=== PATIENT | female | born 1955 | race Caucasian/White ===

== ENCOUNTER 2025-07-24 13:10 | Emergency (ER) | payer MEDICARE, MEDICAID, SELFPAY ==
--- OUTSIDE RECORDS SUMMARY | 2025-02-26 07:00 | XMS_ITS ---
Author Organization [facility] Address [address] [place] [address] Care Team Providers Care Photoflash Powder Mixer Name Role Phone Alina Evans Primary Care Provider [phone] EVANS, ALINA Unavailable Unavailable REASON FOR VISIT f/u Encounters Encounter Location Date Provider Diagnosis [facility] Office [address] [address] 02/26/2025 Alina Evans Plan Of Treatment No Information Progress Notes * Kathleen BUTT LDOB: (70 yo F)Acc No.[id number]:02/26/2025 Progress Notes Patient: Berenice samuels Kathleen Cade Provider: Farzana Evans UNIX ARCHITECT :1955 A ge:70 Y S ex:Female Date:02/26/2025 [facility] Subjective: * Chief Complaints: * F /u Billing Information: * Procedure Codes: Care Plan Details* * Electronic signature of Grey Evans APN on 07/24/2025 at 01:24 PM TRANSPLANT NURSE Sign off status: Pending * Provider: Farzana Evans UNIX ARCHITECT Date: 0 02/26/2025 Generated for Fredrick valencia/Talon/eTransmitting on: 01:24 PM TRANSPLANT NURSE
--- OUTSIDE RECORDS SUMMARY | 2025-03-04 07:00 | XMS_ITS ---
Author Organization [facility] Address [address] [place] [address] Care Team Providers Care Rehab Therapy Manager Name Role Phone Alina Evans Primary Care Provider ALINA EVANS Unavailable Unavailable REASON FOR VISIT 3 month f/u Encounters Encounter Location Date Provider Diagnosis [facility] Office [address] [facility] [address] [place] [address] 03/04/2025 Alina Evans Plan Of Treatment No Information Progress Notes * Kathleen BUTT LDOB: (70 yo F)Acc No.[id number]:03/04/2025 Progress Notes Patient: Berenice samuels Kathleen Cade Provider: Farzana Evans SHAREHOLDER :1955 A ge:70 Y S ex:Female Date:03/04/2025 [facility] Subjective: * Chief Complaints: * 3 month f/u Care Plan Details* * Electronic signature of Grey Evans APN on 07/24/2025 at 01:24 PM STONEWORKER Sign off status: Pending * Provider: Farzana Evans SHAREHOLDER Date: 0 03/04/2025 Generated for Fredrick valencia/Talon/eTransmitting on: 01:24 PM STONEWORKER
--- OUTSIDE RECORDS SUMMARY | 2025-06-13 07:20 | XMS_ITS ---
Author Organization [facility] Address [address] [place] [address] Care Team Providers Care Branch Examiner Name Role Phone Alina Evans Primary Care Provider [phone] ALINA EVANS Unavailable Unavailable REASON FOR VISIT 3 month f/u Encounters Encounter Location Date Provider Diagnosis [facility] Office [address] [facility] [address] [place] [address] 06/13/2025 Alina Evans Plan Of Treatment No Information Progress Notes * Kathleen BUTT LDOB: (70 yo F)Acc No.[id number]:06/13/2025 Progress Notes Patient: Berenice samuels Kathleen Cade Provider: Farzana Evans EELER :1955 A ge:70 Y S ex:Female Date:06/13/2025 Address[facility] Subjective: * Chief Complaints: * 3 month f/u Care Plan Details* * Electronic signature of Grey Evans APN on 07/24/2025 at 01:24 PM COMMERCIAL REAL ESTATE LENDER Sign off status: Pending * Provider: Farzana Evans EELER Date: 08/13/2024 Generated for Fredrick valencia/Talon/eTransmitting on: 01:24 PM COMMERCIAL REAL ESTATE LENDER
--- OUTSIDE RECORDS SUMMARY | 2025-06-28 05:35 | XMS_ITS ---
Author Organization [facility] Address [address] [place] [address] Care Team Providers Care Wildlife Ecology Professor Name Role Phone [facility] Primary Care Provider [place], [facility] Unavailable Unavailable Allergies Allergen (clinical drug ingredient) Drug/Non Drug Allergy documented on EMR Reaction Allergy Type Onset Date Status No Known Drug Allergy Unknown Drug Allergy Active REASON FOR VISIT [facility] Monthly Call Medications Medication SIG (Take, Route, Frequency, Duration) Notes Start Date End Date Status Vitamin B Complex - Tablet 1 tablet Orally daily Active traMADol HCl 50 mg Tablet TAKE 1 TABLET BY MOUTH EVERY 4 hours NEEDED FOR SEVERE pain FOR 30 days; Duration: 30 06/21/2025 Active Vitamin D (Ergocalciferol) 1.25 MG (11622 UT) Capsule TAKE ONE CAPSULE BY MOUTH EVERY WEEK; Duration: 28 Active Levothyroxine Sodium 75 mcg Tablet TAKE 1 TABLET BY MOUTH EVERY MORNING; Duration: 30 Active traZODone HCl 50 mg Tablet TAKE ONE TABL ET BY MOUTH At Bedtime NEEDED; Duration: 30 Active Benazepril HCl 20 mg Tablet TAKE ONE TABLET BY MOUTH TWICE DAILY OR as directed FOR blood pressure; Duration: 100 Active ARIPiprazole 2 mg Tablet 1 tab orally ev bridget other day in the evening; Duration: 90 days Active Aspirin 81 MG Tablet Chewable 1 tablet Orally Once a day; Duration: 30 day(s) 03/15/2022 Active Benazepril HCl 20 mg Tablet TAKE ONE TABLET BY MOUTH TWICE DAILY OR as directed FOR blood pressure; Duration: 100 Active Atorvastatin Calcium 10 mg Tablet TAKE ONE TABLET BY MOUTH EVERY EVENING; Duration: 90 Active Montelukast Sodium 10 MG Tablet 1 tablet Orally Once a day; Duration: 30 day(s) 07/12/2022 Not-Taking Metoprolol Tartrate 100 mg Tablet TAKE ONE TABLET BY MOUTH TWICE DAILY; Duration: 30 Active Cetirizine HCl 10 mg Tablet TAKE ONE TABLET BY MOUTH EVERY DAY; Duration: 30 Active Estradiol 1 mg Tablet TAKE ONE TABLET BY MOUTH DAILY; Duration: 30 Active Escitalopram Oxalate 20 mg Tablet TAKE 1 TABLET BY MOUTH EVERY DAY; Duration: 30 Active ALPRAZolam 0.5 mg Tablet TAKE 1/2 TO 1 T ABLET BY MOUTH THREE TIMES DAILY NEEDED FOR ANXIETY; Duration: 30 06/21/2025 Active Fluticasone Propionate 50 MCG/ACT Suspension 1 spray in each nostril Nasally Once a day; Duration: 30 day(s) 09/10/2022 Not-Taking Estradiol 0.1 MG/24HR Patch Twice Weekly APPLY ONE PATCH onto SKIN twice PER WEEK DIRECTED; Duration: 84 Not-Takin g Social History Tobacco Use: Social History Observation Description Date Details (start date - stop date) Former Smoker NA - NA Social History Tobacco Use: Social Info Question Answer Notes Tobacco Control (Standard) Tobacco use: Former smoker How long has it been since you last smoked? 5-10 years Section Notes: Depression screen completed 07/31/2024 Encounters Encounter Location Date Provider Diagnosis [facility] [place] 06/28/2025 Trinidad Evans Generalized anxi ety disorder F41.1 and Essential (primary) hypertension I10 Assessments Encounter Date Diagnosis (ICD Code) Assessment Notes Treatment Notes Treatment Clinical Notes Section Notes 06/28/2025 Generalized anxiety disorder (ICD-10 - F41.1) Learning About Anxiety Disorders material was published 06/28/2025 Essential (primary) hypertension (ICD-10 - I10) Plan Of Treatment Treatment Notes Assessment Notes Generalized anxiety disorder Learning Ab out Anxiety Disorders material was published Progress Notes * Kathleen BUTT LDOB: 5 (70 yo F)Acc No.[id number]:06/28/2025 Patient: Feng FLORESholli Cade :1955 A ge:70 Y S ex:Female Address:[address] [place] [id number] Subjective: * Chief Complaints: * C CM Monthly Call * Medical History: Problem:Depressive disorder (disorder) , Status :: Active Problem:Fibrocystic disease of breast (disorder) , Status :: Active Problem:Hypertensive disorder, systemic arterial (disorder) , Status :: Active Problem:Incontinence (finding) , Status :: Active Problem:Uterine prolapse (disorder) , Status :: Active Measles Mumps Chicken Pox * Surgical History: hysterectomy 2019 cataract removal 2017 * Hospitalization/Major Diagno stic Procedure: Major Depression 2019 * Family History: F ather: 93 yrs, dementia, hypertension, colon problem, stroke. M other: 45 yrs, breast cancer. M aternal Grand Father: cancer. P aternal Grand Father: heart attack. C hildren: alive. S pouse: alive. * Social History: T obacco Use: T obacco Control (Standard) T obacco use: F ormer smoker H ow long has it been since you last smoked??5-10 years D epression screen completed 07/31/2024. * Medications: T akingEscitalopram Oxalate 20 mg Tablet TAKE 1 TABLET BY MOUTH EVERY DAY Estradiol 1 mg Tablet TAKE ONE TABLET BY MOUTH DAILY Cetirizine HCl 10 mg Tablet TAKE ONE TABLET BY MOUTH EVERY DAY Metoprolol Tartrate 100 mg Tablet TAKE ONE TABLET BY MOUTH TWICE DAILY Atorvastatin Calcium 10 mg Tablet TAKE ONE TABLET BY MOUTH EVERY EVENING Benazepril HCl 20 mg Tablet TAKE ONE TABLET BY MOUTH TWICE DAILY OR as directed FOR blood pressure ARIPiprazole 2 mg Tablet 1 tab orally every other day in the evening Benazepril HCl 20 mg Tablet TAKE ONE TABLET BY MOUTH TWICE DAILY OR as directed FOR blood pressure Aspirin 81 MG Tablet Chewable 1 tablet Orally Once a day Vitamin B Complex - Tablet 1 tablet Orally daily Vitamin D (Ergocalciferol) 1.25 MG (88055 UT) Capsule TAKE ONE CAPSULE BY MOUTH EVERY WEEK traZODone HCl 50 mg Tablet TAKE ONE TABLET BY MOUTH At Bedtime NEEDED Levothyroxine Sodium 75 mcg Tablet TAKE 1 TABLET BY MOUTH EVERY MORNING traMADol HCl 50 mg Tablet TAKE 1 TABLET BY MOUTH EVERY 4 hours NEEDED FOR SEVERE pain FOR 30 days ALPRAZolam 0.5 mg Tablet TAKE 1/2 TO 1 TABLET BY MOUTH THREE TIMES DAILY NEEDED FOR ANXIETY Taking Escitalopram Oxalate 20 mg Tablet TAKE 1 TABLET BY MOUTH EVERY DAY Taking Estradiol 1 mg Tablet TAKE ONE TABLET BY MOUTH DAILY Taking Cetirizine HCl 10 mg Tablet TAKE ONE TABLET BY MOUTH EVERY DAY Taking Metoprolol Tartrate 100 mg Tablet TAKE ONE TABLET BY MOUTH TWICE DAILY Taking Atorvastatin Calcium 10 mg Tablet TAKE ONE TABLET BY MOUTH EVERY EVENING Taking Benazepril HCl 20 mg Tablet TAKE ONE TABLET BY MOUTH TWICE DAILY OR as directed FOR blood pressure Taking ARIPiprazole 2 mg Tablet 1 tab orally every other day in the evening Taking Benazepril HCl 20 mg Tablet TAKE ONE TABLET BY MOUTH TWICE DAILY OR as directed FOR blood pressure Taking Aspirin 81 MG Tablet Chewable 1 tablet Orally Once a day Taking Vitamin B Complex - Tablet 1 tablet Orally daily Taking Vitamin D (Ergocalciferol) 1.25 MG (37752 UT) Capsule TAKE ONE CAPSULE BY MOUTH EVERY WEEK Taking traZODone HCl 50 mg Tablet TAKE ONE TABLET BY MOUTH At Bedtime NEEDED Taking Levothyroxine Sodium 75 mcg Tablet TAKE 1 TABLET BY MOUTH EVERY MORNING Taking traMADol HCl 50 mg Tablet TAKE 1 TABLET BY MOUTH EVERY 4 hours NEEDED FOR SEVERE pain FOR 30 days Taking ALPRAZolam 0.5 mg Tablet TAKE 1/2 TO 1 TABLET BY MOUTH THREE TIMES DAILY NEEDED FOR ANXIETY Not-TakingEstradiol 0.1 MG/24HR Patch Twice Weekly APPLY ONE PATCH onto SKIN twice PER WEEK DIRECTED Fluticasone Propionate 50 MCG/ACT Suspension 1 spray in each nostril Nasally Once a day Montelukast Sodium 10 MG Tablet 1 tablet Orally Once a day Not-Taking Estradiol 0.1 MG/24HR Patch Twice Weekly APPLY ONE PATCH onto SKIN twice PER WEEK DIRECTED Not-Taking Fluticasone Propionate 50 MCG/ACT Suspension 1 spray in each nostril Nasally Once a day Not-Taking Montelukast Sodium 10 MG Tablet 1 tablet Orally Once a day * Allergies: N o Known Drug Allergy Assessment: * Assessment: 1. G eneralized anxiety disorder - F41.1 (Primary) 2 . E ssential (primary) hypertension - I10 Plan: * Treatment: * * Date:
[2025-07-24 13:03] VITALS: BP 152/74; PULSE 66; RESP 18; TEMP 36.8; O2SAT 98; BMI 18.2
--- NOTE | 2025-07-24 13:06 | XR_ITS ---
WS: [id number] Right wrist, 3 views, 07/24/2025 Clinical Data: Trauma, obvious deformity Comparison: None. Findings: There are comminuted impacted fractures of the right distal radius and ulna. Dorsal displacement occurred. There is soft tissue swelling about the wrist. The carpal bones are intact. The mineralization of the wrist and hand is noted. XR/XR wrist RT min 3V* [id number] Impression: Fractures of distal right radius and ulna.
--- NOTE | 2025-07-24 13:06 | CTR_ITS ---
PROCEDURE INFORMATION: Exam: CT Cervical Spine Without Contrast Exam date and time: 07/24/2025 1:25 PM Age: 70 years old Clinical indication: Injury or trauma; Blunt trauma; Injury date: 3 weeks ago; Injury details: PT presents to ED via [facility] for fall 3 wks ago, R wrist pain. Has had persisting R wrist pain since them. Also struck head, - loc. No anticoagulation. EMS reports HX dementia. Lives at home with . TECHNIQUE: Imaging protocol: Computed tomography of the cervical spine without contrast. Radiation optimization: All CT scans at this facility use at least one of these dose optimization techniques: automated exposure control; mA and/or kV adjustment per patient size (includes targeted exams where dose is matched to clinical indication); or iterative reconstruction. COMPARISON: CT head wo con* [id number] 07/24/2025 1:25 PM RADIATION DOSE METRICS: Total DLP (mGy-cm): 158.1 FINDINGS: Bones: No acute fracture. Normal alignment. No significant disc bulge or herniation. No severe spinal canal stenosis. No significant neural foraminal narrowing. Lungs: Lung apices are normal. Soft tissues: Unremarkable. CT/CT cervical spin wo con* [id number] IMPRESSION: No acute cervical spine fracture.
--- NOTE | 2025-07-24 13:07 | CTR_ITS ---
PROCEDURE INFORMATION: Exam: CT Head Without Contrast Exam date and time: 07/24/2025 1:25 PM Age: 70 years old Clinical indication: Injury or trauma; Blunt trauma (contusions or hematomas); Injury details: PT presents to ED via [facility] for fall 3 wks ago, R wrist pain. Has had persisting R wrist pain since them. Also struck head, - loc. No anticoagulation. EMS reports HX dementia. Lives at home with . ; Additional info: Altered mental status fall TECHNIQUE: Imaging protocol: Computed tomography of the head without contrast. Radiation optimization: All CT scans at this facility use at least one of these dose optimization techniques: automated exposure control; mA and/or kV adjustment per patient size (includes targeted exams where dose is matched to clinical indication); or iterative reconstruction. COMPARISON: CT cervical spin wo con* [id number] 07/24/2025 1:25 PM RADIATION DOSE METRICS: Total DLP (mGy-cm): 158.1 FINDINGS: Brain: Are No acute intra-axial hemorrhage. No masses. Normal no-white matter differentiation. No midline shift or mass effect. Mild patchy hypodensity in hemispheric white matter bilaterally most likely due to chronic microangiopathy. There is mild diffuse cerebral atrophy present, consistent with this patient's age. Cerebral ventricles: No ventriculomegaly. Paranasal sinuses: Visualized sinuses are unremarkable. No fluid levels. Mastoid air cells: Visualized mastoid air cells are well aerated. Bones: Unremarkable. No acute fracture. Soft tissues: Unremarkable. CT/CT head wo con* [id number] IMPRESSION: No acute intracranial abnormality.
--- NOTE | 2025-07-24 13:10 | W.ED.GENADLT ---
HPI - General Adult General: Chief complaint: Fall Stated complaint: fall x3 weeks ago, wrist pain History of Present Illness: 7-year-old female presents emergency room report of a fall 3 weeks ago she has obvious deformity to her right wrist she also states she hit her head and that her neck hurts. She has a history of dementia and lives at home her is her main support person. She denies loss of consciousness but I am uncertain that she actually understands the question. She denies chest pain or abdominal pain or recent illness. Associated symptoms: Deny chest pain, dyspnea or rash Related Data Home Medications ?Medication ?Instructions ?Recorded ?Confirmed alprazolam 0.5 mg tablet 0.25 - 0.5 mg PO TID PRN Anxiety 07/24/25 07/24/25 aripiprazole 2 mg tablet See Rx Instructions .Route .COMPLEX 07/24/25 07/24/25 atorvastatin 10 mg tablet 10 mg PO QPM 07/24/25 07/24/25 benazepril 20 mg tablet 20 mg PO BID 07/24/25 07/24/25 cetirizine 10 mg tablet 10 mg PO DAILY 07/24/25 07/24/25 escitalopram oxalate 20 mg tablet 20 mg PO DAILY 07/24/25 07/24/25 estradiol 1 mg tablet 1 mg PO DAILY 07/24/25 07/24/25 levothyroxine 75 mcg tablet 75 mcg PO QAM 07/24/25 07/24/25 metoprolol tartrate 100 mg tablet 100 mg PO BID 07/24/25 07/24/25 tramadol 50 mg tablet 50 mg PO Q4H PRN Severe Pain 07/24/25 07/24/25 (Scale Score 7-10) trazodone 50 mg tablet 50 mg PO BEDTIME PRN Sleep 07/24/25 07/24/25 Previous Rx's ?Medication ?Instructions ?Recorded magnesium oxide 400 mg PO BID #20 tabs 07/24/25 potassium chloride 20 mEq 20 meq PO DAILY #10 tabs 07/24/25 tablet,extended release (K-Tab) Allergies Allergy/AdvReac Type Severity Reaction Status Date / Time No Known Allergies Allergy Verified 07/24/25 13:09 Review of Systems Const: Denies: fever(s) or chills Card: Denies: chest pain Resp: Denies: dyspnea GI: Denies: abdominal pain : Denies: dysuria, urinary frequency or urinary urgency Musc: Denies: neck pain or back pain Skin/Breast: Denies: rash Physical Exam Const: COMMON NORMALS: no acute distress GENERAL APPEARANCE: cooperative and comfortable ORIENTATION/CONSCIOUSNESS: Yes awake, Yes oriented to person, Yes oriented to place and Yes oriented to time HENMT: COMMON NORMALS: normocephalic, atraumatic and hearing grossly normal bilaterally HEAD & SCALP: normocephalic and atraumatic Resp: COMMON NORMALS: normal respiratory effort, No retractions, No use of accessory muscles and clear to auscultation bilaterally AUSCULTATION: clear to auscultation bilaterally Cardio: COMMON NORMALS: regular rate, regular rhythm and No murmurs present (Cardio) RATE: regular rate RHYTHM: regular rhythm GI: COMMON NORMALS: Soft to palpation and No hepatosplenomegaly present AUSCULTATION: Yes normoactive bowel sounds PALPATION: Yes Soft to palpation, No Tenderness to palpation present (GI), No Guarding due to palpation present (GI) and Yes No hepatosplenomegaly present Extremity: COMMON NORMALS: normal to inspection, capillary refill normal, no clubbing, cyanosis or edema, no calf tenderness and no pedal edema Neuro: SENSORIUM/ORIENTATION: Yes oriented to person, Yes oriented to place and Yes oriented to time Skin: COMMON NORMALS: no rashes or lesions noted GENERAL SKIN EXAM: no rashes or lesions noted Course Vital Signs: Vital signs: Vital Signs Temperature 98.2 F 07/24/25 13:03 Pulse Rate 63 07/24/25 14:45 Respiratory Rate 16 07/24/25 14:45 Blood Pressure 168/52 07/24/25 14:45 Pulse Oximetry 98 07/24/25 14:45 Oxygen Delivery Me thod Room Air 07/24/25 13:14 MDM - General Adult Medical Decision Making Labs and imaging reviewed. Patient has a and is compacted has significant loss of volar tilt is already some healing in place. C-spine and head CT were unremarkable. Incidental finding of hypokalemia she was given oral potassium supplement. Magnesium was 1.3. Discussed findings with the patient discharged home with sugar-tong splint and a sling will refer her to orthopedics additionally patient discharged home with oral potassium supplement and magnesium and advised follow-up with her primary care doctor for repeat potassium testing within the next week. Medical Records I reviewed the patient's medical records. Lab Data I reviewed the patient's lab results. 07/24/25 13:21 07/24/25 13:21 Radiology Impressions Cervical Spine CT 07/24/25 13:06 IMPRESSION: No acute cervical spine fracture. Wrist X-Ray 07/24/25 13:06 Impression: Fractures of distal right radius and ulna. Head CT 07/24/25 13:07 IMPRESSION: No acute intracranial abnormality. Laboratory Results WBC 12.18 10^3/uL (3.29-11.43) H 07/24/25 13:21 RBC 4.24 10^6/uL (3.85-5.65) 07/24/25 13:21 Hgb 12.00 g/dL (11.27-16.99) 07/24/25 13:21 Hct 36.2 % (36-47) 07/24/25 13:21 MCV 85.4 fl (85-98) 07/24/25 13:21 MCH 28.3 pg (27-33) 07/24/25 13:21 MCHC 33.1 g/dL (30-55) 07/24/25 13:21 RDW 13.9 % (12.1-15.1) 07/24/25 13:21 Plt Count 176 10^3/cmm (157-399) 07/24/25 13:21 MPV 11.0 fL (7.4-10.4) H 07/24/25 13:21 Neut % (Auto) 86.7 % 07/24/25 13:21 Lymph % (Auto) 8.0 % 07/24/25 13:21 Blaine % (Auto) 4.4 % 07/24/25 13:21 Eos % (Auto) 0.0 % 07/24/25 13:21 Baso % (Auto) 0.2 % 07/24/25 13:21 Neut # (Auto) 10.55 10^3/uL (1.8-7.7) H 07/24/25 13:21 Lymph # (Auto) 1.0 10^3/uL (0.8-4.8) 07/24/25 13:21 Blaine # (Auto) 0.5 10^3/uL (0.2-0.9) 07/24/25 13:21 Eos # (Auto) 0.0 10^3/uL (0.0-0.8) 07/24/25 13:21 Baso # (Auto) 0.0 10^3/uL (0.0-0.1) 07/24/25 13:21 Nucleated RBC % (auto) 0 % 07/24/25 13:21 Nucleated RBCs # 0.0 /100WBC 07/24/25 13:21 Sodium 135 mmol/L (136-145) L 07/24/25 13:21 Potassium 2.8 mmol/L (3.5-5.1) L* 07/24/25 13:21 Chloride 96 mmol/L (98-107) L 07/24/25 13:21 Carbon Dioxide 25 mmol/L (22-29) 07/24/25 13:21 Anion Gap 16.8 (5-19) 07/24/25 13:21 BUN 8 mg/dL (8-23) 07/24/25 13:21 Creatinine 0.8 mg/dL (0.5-0.9) 07/24/25 13:21 GFR Calculation 70.9 mL/min (90-130) L 07/24/25 13:21 Glucose 130 mg/dL (65-115) H 07/24/25 13:21 Calculated Osmolality 280 mOsm/kg (285-295) L 07/24/25 13:21 Calcium 9.0 mg/dL (8.5-10.5) 07/24/25 13:21 Magnesium 1.3 mg/dL (1.7-2.3) L 07/24/25 13:21 Total Bilirubin 1.2 mg/dL (0.15-1.2) 07/24/25 13:21 AST 37 U/L (0-32) H 07/24/25 13:21 ALT 11 U/L (0-33) 07/24/25 13:21 Alkaline Phosphatase 96 U/L (35-105) 07/24/25 13:21 Total Protein 6.0 g/dL (6.6-8.7) L 07/24/25 13:21 Albumin 3.5 g/dL (3.5-5.2) 07/24/25 13:21 Globulin 2.5 g/dL (1.3-4.6) 07/24/25 13:21 All radiology interpretation(s) finalized by discharge ED provider radiology interpretation(s): Imaging reviewed by myself: X-ray of wrist reviewed by myself impacted distal radial ulnar fracture with loss of volar tilt. Changes of remodeling present. CT C-spine reviewed no significant malalignment. No evidence of fracture CT head no acute intracranial hemorrhage Discharge Plan Discharge Patient Disposition: Home Clinical Impression: Fracture of right wrist, Hypokalemia Condition: Stable Prescriptions: New potassium chloride [K-Tab] 20 mEq tablet extended release 20 meq PO DAILY Qty: 10 0RF magnesium oxide 400 mg magnesium tablet 400 mg PO BID Qty: 20 0RF No Action trazodone 50 mg tablet 50 mg PO BEDTIME PRN (Reason: Sleep) cetirizine 10 mg tablet 10 mg PO DAILY atorvastatin 10 mg tablet 10 mg PO QPM metoprolol tartrate 100 mg tablet 100 mg PO BID tramadol 50 mg tablet 50 mg PO Q4H PRN (Reason: Severe Pain (Scale Score 7-10)) levothyroxine 75 mcg tablet 75 mcg PO QAM alprazolam 0.5 mg tablet 0.25 - 0.5 mg PO TID PRN (Reason: Anxiety) estradiol 1 mg tablet 1 mg PO DAILY benazepril 20 mg tablet 20 mg PO BID escitalopram oxalate 20 mg tablet 20 mg PO DAILY aripiprazole 2 mg tablet See Rx Instructions .ROUTE .COMPLEX Rx Instructions: Take 1 tablet by mouth every other day in the evening. Discharge Orders: Discharge ED (Routine); Ordered 07/24/25 Ordered By: Cruzito Alas Referrals: Vincenzo Blake MD [Primary Care Provider, Internal Medicine] Discharge Diet: Usual diet Discharge Activity: Limit activity as instructed Patient Instructions: Opioid Safety, Pain Management, Patient Portal & Eric Instructions Activity Restrictions/Additional Instructions: Thank you for choosing [facility] for your healthcare needs today. It is very important that you follow up as instructed or that you return to the Emergency Department should you have concerns or if your condition changes or worsens in any way. Emergency department visits are focused on emergent conditions, in some cases you may require further evaluation on an outpatient basis. You were seen in the emergency room 3 weeks after a fall. You have a fracture of your right wrist. Case management make arrangements for you to follow-up with orthopedics. Your potassium was also low you were given a potassium supplement emergency room and a prescription for potassium tablet she should have this rechecked with your primary care doctor within the next week. (Please note that included in your discharge packet is information concerning opioid safety and pain management. This information is given to all patients were discharged from the ER regardless of their discharge diagnosis or the medicines they usually take or are prescribed.) Print Language: Kiswahili Coding Level of Care Code ED Biological Sciences Professor for Sheba Muhammad
[2025-07-24 13:14] VITALS: BP 152/74; PULSE 65; RESP 18; O2SAT 99
--- OUTSIDE RECORDS SUMMARY | 2025-07-24 13:24 | XMS_ITS | Patient Health Record ---
Author Organization [facility] Address [address] [address] Care Team Providers Care Healthcare Interpreter Name Role Phone [facility] Primary Care Provider DOROTHY, [facility] Unavailable Unavailable Allergies Allergen (clinical drug ingredient) Drug/Non Drug Allergy documented on EMR Reaction Allergy Type Onset Date Status No Known Drug Allergy Unknown Drug Allergy Active Results Component Value Reference Range Flag Notes Lipid Panel Reflex DLDL 8001 3, 40290 Reviewed date:08/02/2024 08:47:03 PM Interpretation: Performing Lab: Notes/Report: Diagnosis Description: Hyperlipidemia, unspecified Trig 124 NA Classification Guidelines:Triglycerides 5-9 yr 30-101 15-19 yr 39-132 Very high >=500 Children: Male Borderline High 150-199 5-9 yr 32-105 Children: Female 10-14 yr 37-131 Adults: >20yrs Desirable <150 High 200-499 0-4 yr 34-112 10-14 yr 32-125 0-4 yr 22-99 15-19 yr 37-148 Chol 130 <=200 MG/DL HDL 36 39-96 MG/DL LOW >=20y 40-59 15-19y 35-74 5-9y 36-73 Reference Ranges:HDL 10-14y 37-70 Female: >=20y 40-59 10-14y 37-74 5-9y 38-75 Male: 15-19y 30-63 CH/HDL 3.6 0.0-4.9 RATIO LDL 70 0-130 MG/DL LDL result is inaccurate , if Trig is >400 mg/dl. See DLDL result. Thyroid Stimulating Hormone (TSH) 27222 Reviewed date:08/02/2024 08:46:53 PM Interpretation: Performing Lab: Notes/Report: Diagnosis Description: Hypothyroidism, unspecified TSH 3.152 .358-3.740 MlU/ML Schedule Confirmation Reviewed date:10/25/2024 12:32:49 PM Interpretation: Performing Lab: Notes/Report: MMU Screen Joni Sunday w/CAD Schedule Confirmation (Not y et reviewed by provider) Interpretation: Performing Lab: Notes/Report: MMU Screen Joni Sunday w/CAD CBC w\ Auto Diff 08580 Reviewed date:08/02/2024 08:46:44 PM Interpretation: Performing Lab: Notes/Report: Diagnosis Description: Essential (primary) hypertension WBC 5.6 4.5-11.0 X10'3 RBC 4.38 4.00-5.20 X10'6 Hgb 12.0 12.0-16.0 G/DL Hct 38.2 36.0-46.0 % MCV 87.2 80.0-100.0 FL MCH 27.4 27.0-31.0 PG MCHC 31.4 31.0-37.0 G/DL Platelet 202 150-400 X10'3 RDW-SD 45.0 35.0-49.0 FL RDW-CV 14.1 12.2-15.6 % MPV 10.6 9.2-12.0 FL Neutro Auto% 65.9 40.0-70.0 % Lymph Auto% 27.9 22.0-44.0 % [place] Auto% 4.9 3.0-7.0 % Eos Auto% .7 2.0-4.0 % LOW Baso Auto% 0.4 0.0-1.0 % Imm Gran% .2 .0-.4 % Neutro Abs 3.67 .80-7.70 Absolute Neutrophil Count 3670 NA Lymph Abs 1.55 .10-4.10 [place] Abs .27 .20-1.00 Eos Abs .04 .00-.40 Baso Abs .02 .00-.20 Imm Gran Abs .01 .00-.10 NRBC# .00 .00-.20 X10'3 NRBC% .00 .00-.20 /100 int act WBC's Comprehensive Metabolic Pane l (CMP) 52682 Reviewed date:08/02/2024 08:46:08 PM Interpretation: Performing Lab: Notes/Report: Diagnosis Description: Essential (primary) hypertension Glucose Serum 70 71-110 MG/DL LOW Testing p erformed at [facility], [address] [place] [address] [place] [address]. CLIA ID#: [id number] BUN 14 7-21 MG/DL Creat 1.08 .51-1.17 MG/DL N-kvngaf-t-benzoquinone imine (NAPQI) is a metabolite of acetaminophen, NAPQI concentrations of apparoximately 10 mg/L correlation to toxic levels of acetaminophen demonstrates a greater than or equil to 10% change in results. NAPQI concentrations greater than this may lead to falsely depressed results for patient samples. Use of this assay is not recommended for patients undergoing treatment with phenindione, due to the potential for falsely depressed results. GFR 55.4 NA Calculation pe rformed from GFR calculator provided by the [employer]. Glomerular Filtration rate(GRF) is the best overall index of kidney function. Normal GFR varies according to age,sex, body size, and declines with age. The [employer] recommends using the CKD-EPI Creatinine Equation(2020) to estimate GFR. BUN/Creat Ratio 13.0 12.0-20.0 % Total Protein 6.0 5.8-8.0 G/DL Albumin 4.0 3.2-4.8 G/DL Globulin 2.0 2.3-3.5 G/DL LOW Alb/Glob 2.0 0.8-2.2 Calcium 9.3 8.7-10.4 MG/DL Sodium 142 136-145 MMOL/L Potassium 3.6 3.5-5.1 MMOL/L Chloride 106 98-107 MMOL/L CO2 30.4 20.0-31.0 MMOL/L Anion Gap 9 5-15 Alk Phos 84 46-116 Bili Total .3 .3-1.2 MG/DL Use of this assay is not recommended for patients undergoing treatment with eltrombopag due to the potential for falsely elevated results. AST/SGOT 12 15-37 UNIT/L LOW ALT/SGPT <7 12-78 UNIT/L LOW Schedule Confirmation Reviewed date:07/16/2025 12:57:30 PM Interpretation: Performing Lab: Notes/Report: MMU Screen Joni Sunday w/CAD Schedule Confirmation Reviewed date:10/25/2024 12:32:58 PM Interpretation: Performing Lab: Notes/Report: MMU Screen Joni Sunday w/CAD Cologuard Reviewed date:11/12/2024 10:34:35 AM Interpretation:Negative Performing Lab: Notes/Report: Negative Cologuard Reviewed date:11/12/2024 10:34:35 AM Interpretation:Negative Performing Lab: Notes/Report: Negative Schedule Confirmation Reviewed date:01/01/2025 01:00:35 PM Interpretation: Performing Lab: Notes/Report: MMU Screen Joni Sunday w/CAD Reason For Referral No Information Medications Medication SIG (Take, Route, Frequency, Duration) Notes Start Date End Date Status Benazepril HCl 20 mg Tablet TAKE ONE TABLET BY MOUTH TWICE DAILY OR as directed FOR blood pressure; Duration: 100 Active ARIPiprazole 2 mg Tablet 1 tab orally ev bridget other day in the evening; Duration: 90 days Active Montelukast Sodium 10 MG Tablet 1 tablet Orally Once a day; Duration: 30 day(s) 07/12/2022 Not-Taking Vitamin B Complex - Tablet 1 tablet Orally daily Active traMADol HCl 50 mg Tablet TAKE 1 TABLET BY MOUTH EVERY 4 hours NEEDED FOR SEVERE pain FOR 30 days; Duration: 30 07/11/2025 Active Aspirin 81 MG Tablet Chewable 1 tablet Orally Once a day; Duration: 30 day(s) 03/15/2022 Active ALPRAZolam 0.5 mg Tablet TAKE 1/2 TO 1 T ABLET BY MOUTH THREE TIMES DAILY NEEDED FOR ANXIETY; Duration: 30 06/21/2025 Active Cetirizine HCl 10 mg Tablet TAKE ONE TABLET BY MOUTH EVERY DAY; Duration: 30 Active Benazepril HCl 20 mg Tablet TAKE ONE TABLET BY MOUTH TWICE DAILY OR as directed FOR blood pressure; Duration: 100 Active Fluticasone Propionate 50 MCG/ACT Suspension 1 spray in each nostril Nasally Once a day; Duration: 30 day(s) 09/10/2022 Not-Taking Estradiol 0.1 MG/24HR Patch Twice Weekly APPLY ONE PATCH onto SKIN twice PER WEEK DIRECTED; Duration: 84 Not-Takin g Atorvastatin Calcium 10 mg Tablet TAKE ONE TABLET BY MOUTH EVERY EVENING; Duration: 90 Active Vitamin D (Ergocalciferol) 1.25 MG (56414 UT) Capsule TAKE ONE CAPSULE BY MOUTH EVERY WEEK; Duration: 28 Active Metoprolol Tartrate 100 mg Tablet TAKE ONE TABLET BY MOUTH TWICE DAILY; Duration: 30 Active Estradiol 1 mg Tablet TAKE ONE TABLET BY MOUTH DAILY; Duration: 30 Active Levothyroxine Sodium 75 mcg Tablet TAKE 1 TABLET BY MOUTH EVERY MORNING; Duration: 30 Active Escitalopram Oxalate 20 mg Tablet TAKE 1 TABLET BY MOUTH EVERY DAY; Duration: 30 Active traZODone HCl 50 mg Tablet TAKE ONE TABL ET BY MOUTH At Bedtime NEEDED; Duration: 30 Active Immunizations Vaccine Route Administration Date Status Comme nts COVID-19 Vaccine (Moderna) Dose #1 Unknown 10/05/2020 Administered COVID-19 Vaccine (Moderna) Dose #2 Unknown 11/04/2020 Administered Flucelvax Quadrivalent Pres Free IM Intramuscular 07/05/2022 Administered [facility]: 22992-801-85 Patient tolerated well, advised to wait 20 min at clinic Flucelvax Trivalent, Syringe 0.5 mL, PF Unknown 05/29/2024 Refused Flucelvax Trivalent, Syringe 0.5 mL, PF Unknown 06/21/2025 Refused Social History Tobacco Use: Social History Observation Description Date Details (start date - stop date) Former Smoker NA - NA Social History Depression Screening Social Info Question Answer Notes depression screening findings Findings Positive (9+ without suicidality) PHQ-9 Little interest or pleasure in doing things Nearly every day Feeling down, depressed, or hopeless Nearly ever y day Trouble falling or staying asleep, or sleeping t oo much Not at all Feeling tired or having little energy Not at all Poor appetite or overeating Several days Feeling bad about yourself, or that you are a failure, or have let yourself or your family down Nearly every day Trouble concentrating on thi ngs, such as reading the newspaper or watching television Not at all Moving or speaking so slowly that other people could have noticed. Or the opposite ? being so fidgety or restless that you have been moving around a lot more than usual Several days Thoughts that you would be b agustin off , or of hurting yourself in some way Not at all Total Score 11 Interpretation Moderate Depression Drugs/Alcohol: Social Info Question Answer Notes Alcohol Screen (Audit-C) Did you have a drink containing alcohol in the past year? No Points 0 Interpretation Negative Drugs Have you used drugs other than those for medical reasons in the past 12 months? No Caffeine Intake: more than 4 cups per day Comprehensive Health Assessm ent Social Info Question Answer Notes *Social Determinants of Health Has lack of transportation kept you from medical appointments, meetings, work or from getting things needed for daily living? No Recently, have you worried t hat your food would run out before you got money to buy more? No Do you feel physically and emotionally safe wher e you currently live? Yes Are you worried about losing your housing? No Tobacco Use: Social Info Question Answer Notes Tobacco Control (Standard) Tobacco use: Former smoker How long has it been since you last smoked? 5-10 years Section Notes: Depression screen completed 03/08/2023 score 5 Depression screen completed 12/06/2023 score 2 Depression screen completed 07/31/2024 12/03/2021 12/03/2021 12/03/2021 Depression screen completed 03/08/2023 score 5 Depression screen completed 03/08/2023 score 5 Depression screen completed 12/06/2023 score 2 Depression screen completed 12/06/2023 score 2 Depression screen completed 12/06/2023 score 2 Depression screen completed 07/31/2024 Depression screen completed 07/31/2024 Depression screen completed 07/31/2024 Depression screen completed 07/31/2024 12/03/2021 12/03/2021 12/03/2021 12/03/2021 12/03/2021 12/03/2021 Depression screen completed 03/08/2023 score 5 Depression screen completed 03/08/2023 score 5 Depression screen completed 03/08/2023 score 5 Depression screen completed 03/08/2023 score 5 Depression screen completed 03/08/2023 score 5 Depression screen completed 03/08/2023 score 5 Depression screen completed 12/06/2023 score 2 Depression screen completed 12/06/2023 score 2 Depression screen completed 12/06/2023 score 2 Depression screen completed 12/06/2023 score 2 Depression screen completed 12/06/2023 score 2 Depression screen completed 12/06/2023 score 2 Depression screen completed 12/06/2023 score 2 Depression screen completed 12/06/2023 score 2 Depression screen completed 12/06/2023 score 2 Depression screen completed 07/31/2024 Depression screen completed 07/31/2024 Depression screen completed 07/31/2024 Depression screen completed 07/31/2024 Depression screen completed 07/31/2024 Depression screen completed 07/31/2024 Depression screen completed 07/31/2024 Depression screen completed 07/31/2024 Depression screen completed 07/31/2024 Depression screen completed 07/31/2024 Problems Problem Type SNOMED Code ICD Code Onset Dates Problem Status W/U Status Risk Notes Problem Hysterectomy (307787374) Absence of uterus (Z90.710) 08/30/19 25 Active confirmed Problem Staphylococcal infectious disease (55717527) Unspecified staphylococcus as the cause of diseases classified elsewhere (B95.8) Active confirmed Problem Vitamin D deficiency (58340957) Vitamin D deficiency, unspecified (E55.9) Active confirmed Problem Mixed hyperlipidemia (945896530) Mixed hyperlipidemia (E78.2) Active confirmed Problem Schizophrenia (63700821) Schizophrenia, unspecified (F20.9) Active confirmed Problem Generalized anxiety disorder (04890129) Generalized anxiety disorder (F41.1) Active confirmed Problem Primary insomnia (8029239) Primary insomnia (F51.01) Active confirmed Problem Essential hypertension (23309521) Essential (primary) hypertension (I10) Active confirmed Problem Localized infection of skin AND/OR subcutaneous tissue (496139666) Local infection of the skin and subcutaneous tissue, unspecified (L08.9) Active confirmed Problem Other allergy status, other than to drugs and biological substances (Z91.09) Active confirmed Problem Screening for malignant neoplasm of breast (141814153) Breast cancer screening by mammogram (Z12.31) Active confirmed Problem Essential hypertension (71358694) Essential hypertension (I10) Active confirmed Problem Anxiety (84799344) Anxiety (F41.9) Active confi rmed Problem Osteoarthritis (660148574) Osteoarthritis, unspecified osteoarthritis type, unspecified site (M19.90) Active confirmed Problem Former smoker (0116575) Former smoker (Z87.891) Active confirmed Problem Exacerbation of moderate persistent asthma (disorder) (211867657) Moderate persistent asthmatic bronchitis with acute exacerbation (J45.41) Active confirmed Problem Sciatica (45842526) Right sided sciatica (M54.31) Active confirmed Problem Hypothyroidism (48823342) Hypothyroidism (acquired) (E03.9) Active confirmed Problem Peripheral vascular disease (039250591) PVD (peripheral vascular disease) (I73.9) Active confirmed Problem Exposure to the flu (Z20.828) Active confirmed Problem Hyperlipidaemia (98138322) Hyperlipemia (E78.5) Active confirmed Problem Depression (722027421) Depression (F32.9) Active confirmed Problem Schizophrenia in remission (7585660) Schizophrenia in remission (F20.9) Active confirmed Problem Depression (447185849) Other depression (F32.89) Active confirmed Problem Peripheral vascular disease (760739617) PAD (peripheral artery disease) (I73.9) Active confirmed Problem Thoracogenic scoliosis (61394929) Thoracogenic scoliosis of thoracic region (M41.34) Active confirmed Problem Claudication (96042456) Claudication (I73.9) Active confirmed Problem Peripheral venous insufficiency (59016208) Venous insufficiency (I87.2) Active confirmed Problem Environmental allergy (772507715) Environmental allergies (Z91.09) Active confirmed Problem Moderate recurrent major depression (06546443) Moderate recurrent major depression (F33.1) Active confirmed Problem Chronic kidney disease stage 3A (disorder) (668144786) Chronic kidney disease, stage 3a (N18.31) Active confirmed Problem Encounter for screening for COVID-19 (Z11.52) Active confirmed Problem Primary hypertension (25046925) Primary hypertension (I10) Active confirmed Problem Acute cough (89270262423858928 4) Acute cough (R05.1) Active confirmed Problem Lumbar pain (858270920) Lumbar pain (M54.50) Active confirmed Problem Depressive disorder (disorder) (42005871) Depression, unspecified depression type (F32.A) Active confirmed Vital Signs Heart Rate 64 /min 06/21/2025 Temperature 97.2 degrees Fahrenheit 06/21/2025 Respiratory Rate 20 /min 06/21/2025 Height-cm 160.02 cm 06/21/2025 Blood pressure diastolic 84 mm Hg 06/21/2025 Oximetry 98 % 06/21/2025 Weight-kg 49.44 kg 06/21/2025 Height 63 in 06/21/2025 Blood pressure systolic 134 mm Hg 06/21/2025 Weight 109 lbs 06/21/2025 BMI 19.31 kg/m2 06/21/2025 Encounters Encounter Location Date Provider Diagnosis [facility] [address] [address] 08/30/2024 [facility] Encounter for Medica re annual wellness exam Z00.00 ; Anxiety F41.9 ; Essential (primary) hypertension I10 ; Hypothyroidism (acquired) E03.9 ; Hyperlipemia E78.5 ; Lumbar pain M54.50 ; Other depression F32.89 and Absence of uterus Z90.710 [facility] [place] 12/07/2024 [facility] [address] [address] 06/21/2025 [facility] Encounter for immunization Z23 ; Wrist pain, right M25.531 ; Immunization not carried out because of patient refusal Z28.21 ; Hand pain, right M79.641 ; Anxiety F41.9 and Lumbar pain M54.[address] [address] 03/12/2025 [facility] Generalized anxiety disorder F41.1 ; Lumbar pain M54.50 ; Schizophrenia, unspecified F20.9 ; Depression F32.9 and PAD (peripheral artery disease) I73.[address] [address] 11/27/2024 [facility] Anxiety F41.9 ; Essential (primary) hypertension I10 ; Hypothyroidism (acquired) E03.9 ; Mixed hyperlipidemia E78.2 and Lumbar pain M54.[address] [address] 07/31/2024 [facility] Absence of uterus Z90.710 ; Anxiety F41.9 ; Hypothyroidism (acquired) E03.9 ; Mixed hyperlipidemia E78.2 ; Chronic kidney disease, stage 3a N18.31 ; Essential (primary) hypertension I10 ; Lumbar pain M54.50 ; Moderate recurrent major depression F33.1 ; Schizophrenia, unspecified F20.9 and Depression screen Z13.31 [facility] [address] [address] 08/02/2024 [facility] Essential (primary) hypertension I10 ; Hyperlipemia E78.5 and Hypothyroidism (acquired) E03.9 [facility] [address] [place] [address] 08/06/2024 [facility] Colon cancer screeni ng Z12.11 [facility] [place] 07/30/2024 [facility] Primary hyperten graham I10 and Mixed hyperlipidemia E78.2 [facility] [place] 06/28/2025 [facility] Generalized anxi ety disorder F41.1 and Essential (primary) hypertension I10 [facility] [place] 05/29/2025 [facility] Mixed hyperlipid emia E78.2 and Generalized anxiety disorder F41.1 [facility] [place] 04/24/2025 [facility] Essential (prima ry) hypertension I10 and Primary hypertension I10 [facility] [place] 04/15/2025 [facility] Essential (prima ry) hypertension I10 ; Osteoarthritis, unspecified osteoarthritis type, unspecified site M19.90 and Lumbar pain M54.50 [facility] [place] 03/08/2025 [facility] Essential (prima ry) hypertension I10 and Osteoarthritis, unspecified osteoarthritis type, unspecified site M19.90 [facility] [place] 02/04/2025 [facility] Essential hypert ension I10 and Lumbar pain M54.50 [facility] [place] 12/25/2024 [facility] Essential (prima ry) hypertension I10 and Chronic kidney disease, stage 3a N18.31 [facility] [place] 12/07/2024 [facility] Generalized anxi ety disorder F41.1 and Essential (primary) hypertension I10 [facility] [place] 10/30/2024 [facility] Essential (prima ry) hypertension I10 and Osteoarthritis, unspecified osteoarthritis type, unspecified site M19.90 [facility] [place] 10/01/2024 [facility] Essential (prima ry) hypertension I10 and Osteoarthritis, unspecified osteoarthritis type, unspecified site M19.90 [facility] [place] 08/28/2024 [facility] Essential hypert ension I10 and Mixed hyperlipidemia E78.2 Assessments Encounter Date Diagnosis (ICD Code) Assessment Notes Treatment Notes Treatment Clinical Notes Section Notes 07/31/2024 Anxiety (ICD-10 - F41.9) alprazolam 07/31/2024 Absence of uterus (ICD-10 - Z90.710) 08/06/2024 Colon cancer screening (ICD-10 - Z12.11) 10/01/2024 Essential (primary) hypertension (ICD-10 - I10) 10/30/2024 Essential (primary) hypertension (ICD-10 - I10) 12/07/2024 Generalized anxiety disorder (ICD-10 - F41.1) Generalized Anxiety Disorder: Care Instructions material was published 12/25/2024 Essential (primary) hypertension (ICD-10 - I10) 03/12/2025 Generalized anxiety disorder (ICD-10 - F41.1) xanax 03/12/2025 Lumbar pain (ICD-10 - M54.50) tramadol 04/15/2025 Essential (primary) hypertension (ICD-10 - I10) 04/24/2025 Essential (primary) hypertension (ICD-10 - I10) 06/21/2025 Encounter for immunization (ICD-10 - Z23) 06/21/2025 Wrist pain, right (ICD-10 - M25.531) x ray wrap/brace 06/28/2025 Generalized anxiety disorder (ICD-10 - F41.1) Learning About Anxiety Disorders material was published 05/29/2025 Mixed hyperlipidemia (ICD-10 - E78.2) 03/08/2025 Essential (primary) hypertension (ICD-10 - I10) 11/27/2024 Essential (primary) hypertension (ICD-10 - I10) benazepril metoprolol cbc cmp 11/27/2024 Anxiety (ICD-10 - F41.9) continue meds refill xanax 02/04/2025 Essential hypertension (ICD-10 - I10) 08/30/2024 Anxiety (ICD-10 - F41.9) xanax 08/30/2024 Encounter for Medicare annual wellness exam (ICD-10 - Z00.00) Please schedule your next AWV in 1 year. see eval 08/28/2024 Essential hypertension (ICD-10 - I10) 08/02/2024 Essential (primary) hypertension (ICD-10 - I10) 08/02/2024 Hyperlipemia (ICD-10 - E78.5) 07/30/2024 Primary hypertension (ICD-10 - I10) 07/30/2024 Mixed hyperlipidemia (ICD-10 - E78.2) 08/02/2024 Hypothyroidism (acquired) (ICD-10 - E03.9) 08/28/2024 Mixed hyperlipidemia (ICD-10 - E78.2) 02/04/2025 Lumbar pain (ICD-10 - M54.50) 08/30/2024 Essential (primary) hypertension (ICD-10 - I10) continue meds 11/27/2024 Hypothyroidism (acquired) (ICD-10 - E03.9) continue meds tsh 03/08/2025 Osteoarthritis, unspecified osteoarthritis type, unspecified site (ICD-10 - M19.90) 05/29/2025 Generalized anxiety disorder (ICD-10 - F41.1) 06/28/2025 Essential (primary) hypertension (ICD-10 - I10) 06/21/2025 Immunization not carried out because of patient refusal (ICD-10 - Z28.21) 04/24/2025 Primary hypertension (ICD-10 - I10) 04/15/2025 Osteoarthritis, unspecified osteoarthritis type, unspecified site (ICD-10 - M19.90) 12/25/2024 Chronic kidney disease, stage 3a (ICD-10 - N18.31) 03/12/2025 Schizophrenia, unspecified (ICD-10 - F20.9) continue meds 12/07/2024 Essential (primary) hypertension (ICD-10 - I10) 10/30/2024 Osteoarthritis, unspecified osteoarthritis type, unspecified site (ICD-10 - M19.90) 10/01/2024 Osteoarthritis, unspecified osteoarthritis type, unspecified site (ICD-10 - M19.90) 07/31/2024 Hypothyroidism (acquired) (ICD-10 - E03.9) tsh 07/31/2024 Mixed hyperlipidemia (ICD-10 - E78.2) continue med; lipids 03/12/2025 Depression (ICD-10 - F32.9) 04/15/2025 Lumbar pain (ICD-10 - M54.50) Low Back Pain: Exercises material was published 06/21/2025 Hand pain, right (ICD-10 - M79.641) x ray 11/27/2024 Mixed hyperlipidemia (ICD-10 - E78.2) continue meds lipids 08/30/2024 Hypothyroidism (acquired) (ICD-10 - E03.9) 08/30/2024 Hyperlipemia (ICD-10 - E78.5) atorvastatin 11/27/2024 Lumbar pain (ICD-10 - M54.50) tramadol 07/31/2024 Chronic kidney disease, stage 3a (ICD-10 - N18.31) 06/21/2025 Anxiety (ICD-10 - F41.9) xanax 03/12/2025 PAD (peripheral artery disease) (ICD-10 - I73.9) 07/31/2024 Essential (primary) hypertension (ICD-10 - I10) continue meds; cbc cmp 06/21/2025 Lumbar pain (ICD-10 - M54.50) tramadol 08/30/2024 Lumbar pain (ICD-10 - M54.50) tramadol 08/30/2024 Other depression (ICD-10 - F32.89) conitnue meds 07/31/2024 Lumbar pain (ICD-10 - M54.50) tramadol 07/31/2024 Moderate recurrent major depression (ICD-10 - F33.1) lexapro 08/30/2024 Absence of uterus (ICD-10 - Z90.710) 07/31/2024 Schizophrenia, unspecified (ICD-10 - F20.9) abilify 07/31/2024 Depression screen (ICD-10 - Z13.31) 07/31/2024 Other Questions asked and answered; discharged to home. 08/02/2024 Other Venipuncture: Performed by:Jose BURTON Attempts: x1 Location:RAC Needle gauge: 21g Patient tolerated well. 08/30/2024 Other Questions asked and answered; discharged to home. 11/27/2024 Other Questions asked and answered; discharged to home. 03/12/2025 Other Questions asked and answered; discharged to home. 06/21/2025 Other Questions asked and answered; discharged to home. Plan Of Treatment Pending Test Test Name Order Date Hand Min 3V Right-[id number] 06/21/2025 Mammogram Screen Joni Sunday w/CAD-54735 Mammogram Screen Joni Sunday w/CAD-04910 Wrist AP/Lateral Right-[id number] 06/21/2025 Schedule Confirmation 07/01/2025 Future Test Test Name Order Date CBC w\ Auto Diff 53127 11/27/2024 Comprehensive Metabolic Panel (CMP) 8005 3 11/27/2024 Lipid Panel Reflex DLDL 35556, 83212 12/2024 Thyroid Stimulating Hormone (TSH) 42179 11/27/2024 Insurance Providers Payer Name Payer Address Payer Phone Subscriber Number Group Number Insured Name Patient Relationship to Insured Coverage Start Date Coverage End Date [facility] Medicare Dual Complete PPO [address] [address] [place] [phone] [id number] DaquanKathleen Self - patient is the insured Medications Administered Medication Instructions Date of Administration Dosage Notes DEPO-Medrol 01/19/2022 40 mg [facility] [place] [address]-225 3-1 pt tolerated well/instructed to wait 20 min DEPO-Medrol 07/12/2022 40 mg [facility] [place] [id number] -01 pt tolerated well/instructed to wait 20 min DEPO-Medrol 09/10/2022 40 mg [facility] [place] [address]62 4-10 pt tolerated well/instructed to wait 20 min DEPO-Medrol 07/08/2023 40 mg [facility] [place] [address]86 3-01 pt tolerated well/instructed to wait 20 min dexAMETHasone 01/19/2022 4 mg [facility] [place] 93156-5 39-30 pt tolerated well/instructed to wait 20 min dexAMETHasone 07/12/2022 4 mg [facility] [place] 47103-5 39-30 pt tolerated well/instructed to wait 20 min dexAMETHasone 09/10/2022 4 mg `[facility] [place] [address]- 0423-00 pt tolerated well/instructed to wait 20 min dexAMETHasone 07/08/2023 4 mg [facility] [place] [address]1081-1 423-00 pt tolerated well/instructed pt to wait 30 min Rocephin 01/19/2022 1 g [facility] [place] 1514-1909- 11 pt tolerated well/instructed to wait 20 min Medical (General) History Medical History History ICD Code Problem:Depressive disorder (disorder) , Status :: Active Problem:Fibrocystic disease of breast (d isorder) , Status :: Active Problem:Hypertensive disorde r, systemic arterial (disorder) , Status :: Active Problem:Incontinence (finding) , Status :: Active Problem:Uterine prolapse (disorder) , St atus :: Active measles mumps Chicken Pox Surgical History Surgery Date(Month/Year) hysterectomy 2019 cataract removal 2017 Hospitalization History Reason Date(Month/Year) Major Depression 2019
[2025-07-24 13:29] LABS: Hematocrit 36.2 % (36-47); Hemoglobin 12.00 g/dL (11.27-16.99); Mean Corpuscular HGB Conc 33.1 g/dL (30-55); Mean Corpuscular Hemoglobin 28.3 pg (27-33); Mean Corpuscular Volume 85.4 fl (85-98); Nucleated Red Blood Cells % 0 %; Platelet Count 176 10^3/cmm (157-399); Red Blood Count 4.24 10^6/uL (3.85-5.65); White Blood Count 12.18 10^3/uL (3.29-11.43)
[2025-07-24 13:56] LABS: Alanine Aminotransferase 11 U/L (0-33); Albumin Level 3.5 g/dL (3.5-5.2); Alkaline Phosphatase 96 U/L (35-105); Anion Gap 16.8 (5-19); Aspartate Amino Transferase 37 U/L (0-32); Blood Urea Nitrogen 8 mg/dL (8-23); Calcium 9.0 mg/dL (8.5-10.5); Carbon Dioxide 25 mmol/L (22-29); Chloride 96 mmol/L (98-107); Globulin 2.5 g/dL (1.3-4.6); Glucose 130 mg/dL (65-115); Osmolality Calculated 280 mOsm/kg (285-295); Sodium 135 mmol/L (136-145); Total Protein 6.0 g/dL (6.6-8.7)
[2025-07-24 13:58] LABS: Potassium 2.8 mmol/L (3.5-5.1)
[2025-07-24] MEDS: potassium chloride oral liq 20 mEq/15 mL UDC 40 MEQ PO (14:26)
[2025-07-24 14:27] LABS: Magnesium 1.3 mg/dL (1.7-2.3)
[2025-07-24 14:45] VITALS: BP 168/52; PULSE 63; RESP 16; O2SAT 98
== END 2025-07-24 14:46 | disposition home or self-care (01) ==
PROVIDERS: Emergency Provider Family Medicine; Family Provider Internal Medicine; PCP Internal Medicine
DX: S52.501A Unspecified fracture of the lower end of right radius, initial encounter for closed fracture (principal); S52.601A Unspecified fracture of lower end of right ulna, initial encounter for closed fracture; W19.XXXA Unspecified fall, initial encounter; E87.6 Hypokalemia
CPT/HCPCS: 36415; 70450; 72125; 73110; 80053; 83735; 85025; 99284; J9999